=== PATIENT | female | born 1970 | race Caucasian/White ===

== ENCOUNTER 2021-11-09 09:48 | Day surgery (SDC) | payer OTHER, SELFPAY ==
[~2021-11-09] VITALS: Ht 157.5 cm; Wt 78.5 kg
[~2021-11-09 09:48] MED LIST: BENA5TAB13 PO; LEVO0.114 PO
[2021-11-09 11:21] LABS: BASOPHILS % (AUTO) 0.8 % (0.0-2.0); EOSINOPHILS # (AUTO) 0.2 K/uL (0-0.4); EOSINOPHILS % (AUTO) 4.1 % (0.0-4.0); HEMATOCRIT 37.8 % (36-48); HEMOGLOBIN 12.8 g/dL (12.0-16.0); LYMPHOCYTES # (AUTO) 0.8 K/uL (2.5-16.5); LYMPHOCYTES % (AUTO) 20.5 % (20.5-51.1); MEAN CORPUSCULAR HEMOGLOBIN 33 pg (27-31); MEAN CORPUSCULAR HGB CONC 34 g/dL (33-37); MEAN CORPUSCULAR VOLUME 97.2 fL (80-94); MONOCYTES # (AUTO) 0.3 K/uL (0.8-1.0); MONOCYTES % (AUTO) 7.7 % (1.7-9.3); NEUTROPHILS # (AUTO) 2.7 K/uL (1.8-7.7); NEUTROPHILS % (AUTO) 66.9 % (42.2-75.2); PLATELET COUNT (AUTO) 179 K/uL (140-450); RED BLOOD CELL COUNT(AUTO) 3.89 MIL/uL (4.20-5.40); RED CELL DISTRIBUTION WIDTH 13.3 % (11.6-13.7); WHITE BLOOD COUNT (AUTO) 4.1 K/uL (4.8-10.8)
[2021-11-09 11:39] LABS: PROTHROMBIN TIME 9.6 secs (10.8-13.4)
[2021-11-09] MEDS ORDERED: LIDOCAINE 2% 1000 MG/50 ML VIAL INJ ONE (12:25)
[2021-11-09] MEDS ORDERED: fentaNYL citrate 0.05 MG/ML VIAL ONE (12:47)
[2021-11-09] MEDS ORDERED: fentaNYL citrate 0.05 MG/ML VIAL IVP ONE (13:40)
== END 2021-11-09 14:15 | disposition home or self-care (01) ==
LOC: MMU 09:48 → MDS 09:48
PROVIDERS: ATTEND Internal Medicine Gastroenterology
DX: K74.3 Primary biliary cirrhosis (principal); I10 Essential (primary) hypertension; E03.9 Hypothyroidism, unspecified; Z20.822 Contact with and (suspected) exposure to COVID-19; Z85.3 Personal history of malignant neoplasm of breast; Z79.899 Other long term (current) drug therapy
CPT/HCPCS: 36415; 47000; 76942; 81025; 85025; 85610; 85730; 87426; J2001; J3010; Q0092; 88307; 88313